=== PATIENT | male | born 1955 | race Caucasian/White ===

== ENCOUNTER → 2017-01-30 | Outpatient (CLI) | payer OTHER | END | disposition home or self-care (01) | LOC: PCVCIMAG 13:26 | PROVIDERS: ATTEND Internal Medicine Cardiovascular Disease | DX: I65.23 Occlusion and stenosis of bilateral carotid arteries (principal); I44.7 Left bundle-branch block, unspecified; I25.10 Atherosclerotic heart disease of native coronary artery without angina pectoris; I77.9 Disorder of arteries and arterioles, unspecified; I10 Essential (primary) hypertension; I25.5 Ischemic cardiomyopathy; E78.00 Pure hypercholesterolemia, unspecified; Z72.0 Tobacco use; Z95.5 Presence of coronary angioplasty implant and graft; Z79.82 Long term (current) use of aspirin; Z79.899 Other long term (current) drug therapy | CPT/HCPCS: 80061; 93005; 93880; G0463 ==

== ENCOUNTER → 2017-03-01 | Outpatient (CLI) | payer OTHER ==
--- NOTE | 2017-03-02 11:06 | PCVCIMAG ---
APPROVED REPORT Exam: Stress Echocardiogram Indication: CAD s/p PCI stent to LAD, LBBB, mild ischemic cardiomyopathy Patient Location: Echo lab Stress Nurse: Rubi Galvez RN Status: routine Ht: 5 ft 10 in HR: 67 bpm BP: 110/68 mmHg Rhythm: LBBB Procedure The patient underwent an Exercise Stress Test using the Rudy Protocol. Blood pressure, heart rate, and EKG were monitored. An Echocardiogram was performed by medical technician assistant in four stages in quad fashion. At peak stress, four selected images were obtained and placed side by side with resting images for comparison. Stress Test Details Stress Test: Exercise stress testing was performed using a Rudy protocol. HR Resting HR: 67 bpmMax Heart Rate (APMHR): 159 bpm Max HR Achieved: 155 bpmTarget HR (85% APMHR): 135 bpm % of APMHR: 97 Recovery HR: 68 bpm HR response to stress: Normal HR response to stress BP Resting BP: 110/68 mmHg Max BP: 160/72 mmHg Recovery BP: 120/60 mmHg ECG Resting ECG: Sinus Rhythm, LBBB Stress ECG: Sinus Rhythm, LBBB ST Change: Equivocal Arrhythmia: LBBB Recovery ECG: Sinus Rhythm, LBBB Recovery Arrhythmia: LBBB Clinical Reason for Termination: Maximal effort Stress Symptoms: Leg Fatigue Exercise duration: 6 min 19 sec Highest Stage Achieved: Stage 3: 3.4 mph at 14% grade. Exercise capacity: 7.9 METs Pre-Stress Echo The resting Echocardiogram showed normal left ventricular contractility with an estimated Ejection Fraction of about 45%. Mildly decreased ejection fraction. Normal wall motion in all segments on baseline images except for discordant septal motion due to LBBB. Post-Stress Echo The stress Echocardiogram showed normal left ventricular contractility with an estimated Ejection Fraction of about 50%. Mildly decreased ejection fraction. Normal wall motion in all segments on baseline images except for discordant septal motion due to LBBB. Clinical No clinical or ECG evidence for ischemia. Conclusion Clinical Response: Non-ischemic Exercise Capacity: Average Stress ECG Response: Non-ischemic Stress Echo Images: Non-ischemic The left ventricle is normal in size and wall thickness in both the rest and stress images. Due to LBBB the next stress testing will be a nuclear stress test for increased accuracy for detecting CAD. Other Information Study Quality: Adequate <Conclusion> The left ventricle is normal in size and wall thickness in both the rest and stress images. Due to LBBB the next stress testing will be a nuclear stress test for increased accuracy for detecting CAD.
== END | disposition home or self-care (01) ==
LOC: PCVCIMAG 13:29
PROVIDERS: ATTEND Internal Medicine Cardiovascular Disease
DX: I25.10 Atherosclerotic heart disease of native coronary artery without angina pectoris (principal); I10 Essential (primary) hypertension; E78.5 Hyperlipidemia, unspecified; R07.89 Other chest pain; I25.5 Ischemic cardiomyopathy; I44.7 Left bundle-branch block, unspecified; Z95.5 Presence of coronary angioplasty implant and graft; Z72.0 Tobacco use
CPT/HCPCS: 93325; 93351

== ENCOUNTER → 2018-04-23 | Outpatient (CLI) | payer BC, OTHER | END | disposition home or self-care (01) | LOC: PCVCIMAG 13:11 | PROVIDERS: ATTEND Internal Medicine Cardiovascular Disease | DX: I65.23 Occlusion and stenosis of bilateral carotid arteries (principal); E78.5 Hyperlipidemia, unspecified | CPT/HCPCS: 93880 ==

== ENCOUNTER → 2019-03-12 | Outpatient (CLI) | payer BC ==
[~2019-03-12] MED LIST: REGADENOSON 0.4 MG/5 ML DISP.SYRIN. IV ONE
--- NOTE | 2019-03-12 15:19 | PCVCIMAG ---
APPROVED REPORT Study performed: 03/12/2019 08:14:13 EXAM: Comprehensive 2D, Doppler, and color-flow Echocardiogram Patient Location: Echo lab Status: routine BSA: 2.04 HR: 68 bpmBP: 148/76 mmHg Rhythm: LBBB w/ PVCs Other Information Study Quality: Adequate Risk Factors: Cardiac Risk Factors: HTN Indications CAD Ischemic cardiomyopathy, LBBB 2D Dimensions IVSd: 12.85 (7-11mm) LVDd: 50.42 mm PWd: 11.03 (7-11mm)Ascending Ao: 35.51 (22-36mm) LVDs: 41.79 (25-40mm) Left Atrium: 37.75 (27-40mm) Aortic Root: 31.66 mm LV Single Plane 4CH: 44.29 % LV Single Plane 2CH: 48.86 % Biplane EF: 46.6 % Volumes Left Atrial Volume (Systole) Single Plane 4CH: 62.85 mLSingle Plane 2CH: 79.48 mL LA ESV Index: 35.00 mL/m2 Aortic Valve AoV Peak Shiva.: 1.28 m/s AO Peak Gr.: 6.54 mmHgLVOT Max P.15 mmHg LVOT Max V: 0.97 m/s Mitral Valve E/A Ratio: 0.8 MV Decel. Time: 238.24 ms MV E Max Shiva.: 0.40 m/s MV A Shiva.: 0.50 m/s IVRT: 138.41 ms Pulmonary Valve PV Peak Shiva.: 0.96 m/sPV Peak Gr.: 3.66 mmHg Pulmonary Vein P Vein S: 0.32 m/sP Vein A: 0.29 m/s P Vein D: 0.42 m/sP Vein A Dur.: 138.4 msec P Vein S/D Ratio: 0.76 Tricuspid Valve TR Peak Shiva.: 2.31 m/s TR Peak Gr.: 21.36 mmHg Left Ventricle The left ventricle is normal size. There is normal LV segmental wall motion. Mild concentric left ventricular hypertrophy. Left ventricular systolic function is mildly decreased. LVEF is 45%. Grade I - abnormal relaxation pattern. Right Ventricle The right ventricle is normal size. The right ventricular systolic function is normal. Atria Left atrium is mildly dilated. The right atrium size is normal. Aortic Valve The aortic valve is normal in structure. No aortic regurgitation is present. There is no aortic valvular stenosis. Mitral Valve Moderate posterior mitral annular calcification. Mild mitral regurgitation. No evidence of mitral valve stenosis. Tricuspid Valve The tricuspid valve is normal in structure. Trace tricuspid regurgitation with PAP of 28 mmHg. Pulmonic Valve The pulmonary valve is normal in structure. Trace pulmonic regurgitation. Great Vessels The aortic root is normal in size. IVC is normal in size and collapses >50% with inspiration. Pericardium There is no pericardial effusion. There is no pleural effusion. <Conclusion> The left ventricle is normal size. Left ventricular systolic function is mildly decreased. LVEF is 45%. Grade I - abnormal relaxation pattern. The right ventricle is normal size. Left atrium is mildly dilated. The aortic valve is normal in structure. Mild mitral regurgitation. Trace tricuspid regurgitation with PAP of 28 mmHg. The aortic root is normal in size. There is no pericardial effusion.
--- NOTE | 2019-03-12 15:20 | PCVCIMAG ---
APPROVED REPORT Imaging Protocol: Rest Tc-99m/Stress Tc-99m 1 day Study performed: 03/12/2019 08:46:01 Indication: CAD, ICM, LBBB Patient Location: Out-Patient Stress Nurse: Rubi Galvez RN [place] Tech:Sancho YADIEL UriasMT Ht: 5 ft 10 in Wt: 185 lbs BSA: 2.02 m2 HR: 62 bpm BP: 188/84 mmHg BMI: 26.5 Rhythm: Sinus Rhythm, Left Bundle Branch Block Medical History Medical History: Age, HLP, HTN, CVD, CAD, Former Smoker Medications: Amlodipine, Atorfastatin, Losartan-HCTZ, Metoprolol Allergies: No known drug allergies Resting Data Rest SPECT myocardial perfusion imaging was performed in supine position 45 minutes following the intravenous injection of 10.9 mCi of Tc-99m Sestamibi. Time of rest injection: 0850 Date: 03/12/2019 Administration Route: IV Administration Site: Right AC Pharmacologic Stress Pharmacologic stress test was performed by injecting Regadenoson 0.4 mg IV push over 10-15 seconds immediately followed by the intravenous injection of 32.2 mCi of Tc-99m Sestamibi. Time of stress injection: 1010 Date: 03/12/2019 Administration Route: IV Administration Site: Right AC Gated Stress SPECT was performed 45 minutes after stress injection. The images were gated to evaluate regional wall motion and calculate left ventricular ejection fraction. Stress Test Details Stress Test: Pharmacologic stress testing performed using 0.4 mg of regadenoson per 5 mL given IV over 10 seconds. Reason for pharmacologic stress test: LBBB. HRMax Heart Rate (APMHR): 157 bpm Resting HR: 62 bpmTarget HR (85% APMHR): 133 bpm Max HR Achieved: 91 bpm % of APMHR: 57 Recovery HR: 83 bpm BP Resting BP: 188/84 mmHg Max BP: 205/91 mmHg Recovery BP: 166/81 mmHg ECG Resting ECG: Sinus Rhythm, Left Bundle Branch Block Stress ECG: Sinus Rhythm, Left Bundle Branch Block Arrhythmia: VPC's Recovery ECG: Sinus Rhythm, Left Bundle Branch Block Clinical Reason for Termination: Completed protocol Stress Symptoms: Dyspnea Symptoms resolved during recovery. Stress ECG Conclusion ECG: Non-ischemic Study Quality Study: Good Study Data Post stress, the left ventricular ejection was 50%.. SSS: 0 SRS: 0 SDS: 0 TID = 0.94. Perfusion No evidence of stress induced ischemia or prior myocardial infarction. Wall Motion Normal left ventricular function with no regional wall motion abnormalities. Mild left ventricular enlargement. Nuclear Conclusion No evidence of stress induced ischemia or prior myocardial infarction. Normal left ventricular function with no regional wall motion abnormalities. Mild left ventricular enlargement. Post stress, the left ventricular ejection was 50%. No prior study available for comparison. Interpreted by: Donato Ramos MD Electronically Approved: 03/12/2019 14:30:17 <Conclusion> ECG: Non-ischemic
== END | disposition home or self-care (01) ==
LOC: PCVCIMAG 07:55
PROVIDERS: ATTEND Internal Medicine Cardiovascular Disease
DX: I25.10 Atherosclerotic heart disease of native coronary artery without angina pectoris (principal); I25.5 Ischemic cardiomyopathy; I34.0 Nonrheumatic mitral (valve) insufficiency; I44.7 Left bundle-branch block, unspecified
CPT/HCPCS: 78452; 93017; 93306; A9500; J2785